=== PATIENT | female | born 1985 | race Hispanic/Latino ===

== ENCOUNTER 2019-08-09 05:18 | Day surgery (SDC) | payer OTHER ==
[2019-08-05 11:39] LABS: BASOPHILS % (AUTO) 0.7 % (0.0-5.0); EOSINOPHILS % (AUTO) 1.9 % (0.0-8.0); HEMATOCRIT 37.8 % (36-48); LYMPHOCYTES % (AUTO) 21.1 % (21.0-51.0); MEAN CORPUSCULAR HEMOGLOBIN 26.9 pg (27.0-33.0); MEAN CORPUSCULAR HGB CONC 33.1 g/dL (32.0-36.0); MEAN CORPUSCULAR VOLUME 81.5 fL (79-99); MONOCYTES % (AUTO) 6.4 % (3.0-13.0); NEUTROPHILS % (AUTO) 69.5 % (40.0-77.0); PLATELET COUNT (AUTO) 224 K/uL (130-400); RED BLOOD CELL COUNT(AUTO) 4.64 MIL/uL (4.00-5.50); RED CELL DISTRIBUTION WIDTH 14.6 % (11.0-15.5); WHITE BLOOD COUNT (AUTO) 7.2 K/uL (4.8-10.8)
[2019-08-08 10:01] VITALS: BP 125/79
[2019-08-09] VITALS (12 sets, daily range): BP systolic 110–127; BP diastolic 52–76
[~2019-08-09] VITALS: Ht 160 cm; Wt 93.9 kg
[~2019-08-09 05:18] MED LIST: CEFAZOLIN SODIUM 1 GM VIAL IVP SCH; prenatal PO
[2019-08-09] MEDS ORDERED: CEFAZOLIN SODIUM 1 GM VIAL ONE (06:12)
[2019-08-09] MEDS ORDERED: LACTATED RINGERS 1000ML 1,000 ML IV ONE (06:12)
[2019-08-09] MEDS ORDERED: CEFAZOLIN SODIUM 1 GM VIAL IVP ONE (07:45)
--- NOTE | 2019-08-09 11:25 | NUR ---
RE: ABDOMINAL CRAMPING PATIENT C/O CRAMPING TO ABDOMEN, RATES PAIN AT A 6 OUT OF [address] CALL[address] DR POWELL AND INFORMED HIM OF PATIENT'S SYMPTOMS AND ASKED IF I COULD GIVE HER IBUPROFEN. RECEIVED ORDERS TO STRAIGHT CATH PATIENT AND MAY GIVE IBUPROFEN 600MG.
--- NOTE | 2019-08-09 12:00 | NUR ---
PATIENT CONTINUES TO C/O NUMBNESS TO BLE'S. PATIENT WAS UNSTEADY WHEN SHE TRANSFERRED FROM WHEELCHAIR TO TOILET. WILL CONTINUE TO MONITOR PATIENT.
--- NOTE | 2019-08-09 12:00 | NUR ---
ATTEMPTED TO STRAIGHT CATH PATIENT BUT WAS UNSUCCESSFUL. SAT PATIENT UP TO SIT ON THE SIDE OF THE BED. PATIENT BEGAN TO URINATE IN BED. TOOK PATIENT TO BATHROOM VIA WHEELCHAIR. PATIENT'S UNDERWEAR/BLUE PAD WERE SATURATED WITH URINE. PATIENT ALSO URINATED IN TOILET. PATIENT VERBALIZED RELIEF OF CRAMPING. STATES THAT CRAMPING PAIN IS NO LONGER A 6 OUT OF 10, NOW RATES PAIN AT A 2 OUT OF 10. PATIENT DOES NOT WANT TO TAKE THE IBUPROFEN FOR CRAMPING.
--- NOTE | 2019-08-09 12:30 | NUR ---
PATIENT C/O PRESSURE TO ABDOMINAL AREA. PATIENT REQUESTING TO BE STRAIGHT CATHETERIZED. STRAIGHT CATH'D THE PATIENT USING STERILE TECHNIQUE, 1000CC CLEAR URINE DRAINED FROM CATHETER. CATHETER WAS THEN CLAMPED AND REMOVED. PATIENT VERBALIZED RELIEF AND NO LONGER IS C/O PRESSURE OR CRAMPING TO ABDOMEN.
--- NOTE | 2019-08-09 13:00 | NUR ---
PATIENT STATES THAT SHE IS STARING TO HAVE MORE SENSATION/FEELING IN HER LEGS AND BUTT. PATIENT ABLE TO FULLY BEND/FLEX HER LEGS. WILL CONTINUE TO MONITOR PATIENT FOR RECOVERY FROM HER SPINAL EPIDURAL.
--- NOTE | 2019-08-09 13:40 | NUR ---
PATIENT STATES THAT SHE FEELS RECOVERED FROM THE SPINAL EPIDURAL. PATIENT ABLE TO AMBULATE IN ROOM AND DRESS HERSELF. DISCHARGE INSTRUCTIONS PROVIDED TO PATIENT AND PATIENT'S MOTHER. ALL QUESTIONS/CONCERNS ADDRESSED.
--- NOTE | 2019-08-09 13:50 | NUR ---
PATIENT DISCHARGED FROM FACILITY VIA WHEELCHAIR BY ZEESHAN PIZANO MA. PATIENT ASSISTED INTO PRIVATE VEHICLE DRIVEN BY FAMILY MEMBER.
== END 2019-08-09 13:50 | disposition home or self-care (01) ==
LOC: DAH 05:18
PROVIDERS: ATTEND Obstetrics & Gynecology
DX: O34.31 Maternal care for cervical incompetence, first trimester (principal); Z3A.14 14 weeks gestation of pregnancy
CPT/HCPCS: 36415 ×2; 59320; 85025; 86850 ×2; 86900 ×2; 86901 ×2; A4213; A4215; A4221; A4222; A4223; A4663; A6260; J0690 ×2; J7030; J7120 ×2; U0003

== ENCOUNTER 2020-01-23 08:23 | Inpatient (IN) | payer OTHER, MEDICAID ==
[~2020-01-23] VITALS: Ht 160 cm; Wt 98.9 kg
[~2020-01-23 08:23] MED LIST changes: -CEFAZOLIN SODIUM 1 GM VIAL IVP SCH
[2020-01-23] MEDS ORDERED: OXYTOCIN-LR 20 UNITS/1000 ML 1,000 ML IV SCH (09:30)
[2020-01-23] MEDS ORDERED: LACTATED RINGERS 1000ML 1,000 ML IV PRN (09:30)
[2020-01-23 09:33] LABS: HEMATOCRIT 36.5 % (36-48); MEAN CORPUSCULAR HEMOGLOBIN 24.9 pg (27.0-33.0); MEAN CORPUSCULAR HGB CONC 32.3 g/dL (32.0-36.0); PLATELET COUNT (AUTO) 164 K/uL (130-400); RED BLOOD CELL COUNT(AUTO) 4.74 MIL/uL (4.00-5.50); RED CELL DISTRIBUTION WIDTH 15.9 % (11.0-15.5); WHITE BLOOD COUNT (AUTO) 8.4 K/uL (4.8-10.8)
[2020-01-23 09:33] LABS: APPEARANCE,URINE Turbid (CLEAR); BILIRUBIN,URINE Negative (NEGATIVE); COLOR,URINE Yellow (YELLOW); GLUCOSE, URINE (UA) Negative (NEGATIVE); KETONES,URINE 15 mg/dL (NEGATIVE); LEUKOCYTE ESTERASE ,URINE Small (NEGATIVE); NITRATE,URINE Negative (NEGATIVE); OCCULT BLOOD,URINE Small (NEGATIVE); PROTEIN,URINE Negative (NEGATIVE); UROBILINOGEN,URINE 0.2 mg/dL (0.2-1.0)
[2020-01-23] MEDS ORDERED: CALDOLOR 800MG+NS 250ML 250 ML IV PRN (09:45)
[2020-01-23] MEDS ORDERED: CEFAZOLIN SODIUM 1 GM VIAL IVP PRN (09:45)
[2020-01-23] MEDS ORDERED: METHYLERGONOVINE MALEATE 0.2 MG/1 ML ML ONE (09:47)
[2020-01-23] MEDS ORDERED: FENTANYL CITRATE PF 50 MCG/1 ML 2ML VIAL ONE (10:01)
[2020-01-23] MEDS ORDERED: DURAMORPH PF1 MG/ML 10ML AMP IV ONE (10:01)
[2020-01-23 10:03] LABS: BACTERIA,URINE Few /HPF (None Seen); RBC,URINE 0-1 /HPF (0-1)
[2020-01-23] MEDS ORDERED: CEFAZOLIN SODIUM 1 GM VIAL IVP ONE (10:06)
[2020-01-23] MEDS ORDERED: OXYTOCIN 10 USP UNITS/ML ONE (10:15)
[2020-01-23] MEDS ORDERED: ONDANSETRON HCL 4 MG/2 ML VIAL ONE (10:16)
[2020-01-23] MEDS ORDERED: PHENYLEPHRINE HCL 10 MG/ML 1ML VIAL IV ONE (10:24)
[2020-01-23] MEDS ORDERED: EPHEDRINE SULFATE 50 MG/ML AMPULE ONE (10:29)
[2020-01-23] MEDS ORDERED: DEXAMETHASONE SOD PHOSPHATE 10MG/ML 1ML VIAL ONE (10:34)
[2020-01-23 10:45] LABS: HEMATOCRIT 36.8 % (36-48); MEAN CORPUSCULAR HEMOGLOBIN 24.7 pg (27.0-33.0); MEAN CORPUSCULAR HGB CONC 31.8 g/dL (32.0-36.0); MEAN CORPUSCULAR VOLUME 77.6 fL (79-99); PLATELET COUNT (AUTO) 163 K/uL (130-400); RED BLOOD CELL COUNT(AUTO) 4.74 MIL/uL (4.00-5.50); RED CELL DISTRIBUTION WIDTH 15.9 % (11.0-15.5); WHITE BLOOD COUNT (AUTO) 8.3 K/uL (4.8-10.8)
[2020-01-23] MEDS ORDERED: PROMETHAZINE HCL 25 MG/ML 1ML AMPULE IM PRN (10:45)
[2020-01-23] MEDS ORDERED: MEPERIDINE-PF 75 MG/ML SYG IM PRN (10:45)
[2020-01-23] MEDS ORDERED: SODIUM CHLORIDE 0.9% 10 ML VIAL IVP PRN (10:45)
[2020-01-23] MEDS ORDERED: OXYTOCIN-LR 20 UNITS/1000 ML 1,000 ML IV PRN (10:45)
[2020-01-23 11:57] VITALS: BP 117/71
[2020-01-23 14:17] VITALS: BP 133/76
[2020-01-23 16:06] VITALS: BP 123/76
--- NOTE | 2020-01-23 16:15 | NUR ---
REPORT RECEIVED FROM MONTY MOLINA AND PATIENT CARE TRANSFERED AT THIS TIME.
[2020-01-23] MEDS ORDERED: ONDANSETRON HCL 4 MG/2 ML VIAL IVP PRN (17:00)
[2020-01-23] MEDS ORDERED: NALOXONE HCL 0.4 MG/1 ML ML IVP PRN ×3 (17:00)
[2020-01-23] MEDS ORDERED: DiphenhydrAMINE HCL 50 MG/ML VIAL IVP PRN (17:00)
[2020-01-23] MEDS ORDERED: EPHEDRINE SULFATE 50 MG/ML AMPULE IVP PRN (17:00)
--- NOTE | 2020-01-23 17:00 | NUR ---
C/O NAUSEA AND WAS MEDICATED WITH ZOFRAN 4MGS.
[2020-01-23] MEDS: DEXTROSE 5 %-0.45 % NACL 1,000 ML IV PRN (18:45)
--- NOTE | 2020-01-23 20:05 | NUR ---
ACTIVITY MINAL CARE GIVEN, ASSISTED TO SIDE OF BED TO DANGLE, TOLERATED WELL,, ABD BINDER PLACED Addendum: 01/24/20 at 0257 by TISHA UMAÑA LVN Amended: Links added.
[2020-01-24 00:20] VITALS: BP 111/76
[2020-01-24] MEDS: DEXTROSE 5 %-0.45 % NACL 1,000 ML IV PRN (01:29)
[2020-01-24 04:05] VITALS: BP 112/69
--- NOTE | 2020-01-24 05:30 | NUR ---
CASTELAN CATHETER F/C REMOVED, INTACT, TOLERATED WELL, INSTRUCTED TO CALL FOR ASSISTANCE WHEN SHE HAS URGE TO VOID, ACKNOWLEDGES UNDERSTANDING Addendum: 01/24/20 at 0626 by TISHA UMAÑA LVN Amended: Links added.
[2020-01-24 07:23] LABS: HEMATOCRIT 31.2 % (36-48); MEAN CORPUSCULAR HGB CONC 32.4 g/dL (32.0-36.0); MEAN CORPUSCULAR VOLUME 77.2 fL (79-99); RED BLOOD CELL COUNT(AUTO) 4.04 MIL/uL (4.00-5.50); RED CELL DISTRIBUTION WIDTH 15.9 % (11.0-15.5); WHITE BLOOD COUNT (AUTO) 11.2 K/uL (4.8-10.8)
[2020-01-24 07:30] VITALS: BP 115/74
[2020-01-24] MEDS ORDERED: LANOLIN 30GM OINTMENT TP PRN (08:00)
[2020-01-24] MEDS ORDERED: ACETAMINOPHEN-CODEINE 300/30MG TAB PO PRN (08:00)
[2020-01-24] MEDS ORDERED: SIMETHICONE 80 MG TAB.CHEW PO PRN (08:00)
[2020-01-24] MEDS ORDERED: BISACODYL 10 MG SUPP.RECT RC PRN (08:00)
[2020-01-24] MEDS ORDERED: HYDROCODONE/ACETAMINOPHEN 5/325 MG TAB PO PRN (08:00)
[2020-01-24] MEDS ORDERED: ACETAMINOPHEN EXTRA STRENGTH 500 MG TABLET PO PRN (08:00)
[2020-01-24] MEDS ORDERED: IBUPROFEN 600 MG TABLET PO PRN (08:00)
[2020-01-24] MEDS ORDERED: DOCUSATE SODIUM 100 MG CAP PO SCH (09:00)
--- NOTE | 2020-01-24 09:10 | NUR ---
ambulating in the hallway in steady gait, accompanied by spouse. Addendum: 01/24/20 at 1340 by JESSE SÁNCHEZ RN Amended: Links added.
[2020-01-24] MEDS ORDERED: IBUPROFEN 800 MG TAB PO SCH (10:45)
[2020-01-24 11:15] VITALS: BP 105/69
--- NOTE | 2020-01-24 12:20 | NUR ---
TRIGGER REC'D. HX ANXIETY MET WITH PT, [place] OF BABY , BABY IN COT. DAD OF BABY W EYES CLOSED, RESP REGULAR, PATIENT SUPPLIED ALL INFO PATIENT STATES SHE LIVES WIHT HER MOTHER/FATHER/ SISTER/ BORTHER//KIDS. STATES SHE HAS HER OWN ROOM, NOT BIG ENOUGH FOR A CRIB BUT BIG ENOUGH FOR A BASINETTE. STATES FATHER OF BABY WILL BE STAYING WITH HER FOR A MONTH. 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 SHE WAS PRESCRIBED 'SOME PILLS, BY A DR. PÉREZ, I THINK HE WAS A RESIDENT" AT [facility]. SHE ALSO WENT TO SOME COUNSELLING SESSION AT [facility], AND THERE LEARNED COPING SKILLS LIKE BREATHING EXERCISES. STATES SHE THREW THE PILLS AWAY WITHOUT FINISHING THE FIRST BOTTLE. SINCE THEM SHE BELIEVES SHE HAS GOOD COPING SKILLS AND WILL NOT HESISTATE TO ASK FOR HELP IF SHE FEELS OVERWHELMED. DENIES ANXIETY AT THIS TIME. Addendum: 01/24/20 at 1449 by REJI CARDONA RN CM Amended: Links added.
--- NOTE | 2020-01-24 12:20 | NUR ---
physician belen - Dr. Fuentes at bedside, informed pt that she is going home today. Addendum: 01/24/20 at 1224 by JESSE SÁNCHEZ RN Amended: Links added.
--- NOTE | 2020-01-24 13:10 | NUR ---
pt is discharged, verbal and written discharge instructions given, pls refer to exit care. informed to call the MD office on monday for follow up appointment. prescription given. informed to call the doctor for further concerns. pt voiced understanding to all things discussed. pt is waiting for her baby to be discharged. Addendum: 01/24/20 at 1338 by JESSE SÁNCHEZ RN Amended: Links added.
--- NOTE | 2020-01-24 14:00 | NUR ---
pt is dismissed with baby in stable condition, brought to private car via wheelchair. Addendum: 01/24/20 at 1409 by JESSE SÁNCHEZ RN Amended: Links added.
[2020-01-25 04:08] LABS: HEPATITIS Bs ANTIGEN SCREEN P Negative (Negative)
[2020-01-25 08:31] LABS: RAPID PLASMA REAGIN NONREACTIVE (NONREACTIVE)
== END 2020-01-24 14:00 | disposition home or self-care (01) | DRG 788 ==
LOC: EDH 08:23 → LDH 08:24 → OBSVTOIN 09:40 → WSH 14:15
PROVIDERS: ADMIT Obstetrics & Gynecology; ATTEND Obstetrics & Gynecology
PROC: 10D00Z1 Extraction of Products of Conception, Low, Open Approach (ICD-10-PCS; principal; 2020-01-23 10:00)
DX: O32.1XX0 Maternal care for breech presentation, not applicable or unspecified (principal); Z3A.38 38 weeks gestation of pregnancy; Z37.0 Single live birth; O99.62 Diseases of the digestive system complicating childbirth; K21.9 Gastro-esophageal reflux disease without esophagitis; O99.214 Obesity complicating childbirth; E66.9 Obesity, unspecified
CPT/HCPCS: 36415; 59510; 76815; 81001; 85027; 86592; 86701; 86850; 86900; 86901; 87340; 87390; A4344; G0378; J0690; J1100; J2210; J2274; J2370; J2405; J2590; J3010; J3490; J7120

== ENCOUNTER 2021-06-17 07:05 | Day surgery (SDC) | payer OTHER, MEDICAID ==
[2021-06-15 11:17] LABS: BASOPHILS % (AUTO) 0.8 % (0.0-5.0); HEMATOCRIT 42.4 % (36-48); LYMPHOCYTES % (AUTO) 24.1 % (21.0-51.0); MEAN CORPUSCULAR HEMOGLOBIN 26.3 pg (27.0-33.0); MEAN CORPUSCULAR HGB CONC 32.5 g/dL (32.0-36.0); MEAN CORPUSCULAR VOLUME 80.9 fL (79-99); MONOCYTES % (AUTO) 5.4 % (3.0-13.0); NEUTROPHILS % (AUTO) 65.9 % (40.0-77.0); PLATELET COUNT (AUTO) 209 K/uL (130-400); RED BLOOD CELL COUNT(AUTO) 5.24 MIL/uL (4.00-5.50); RED CELL DISTRIBUTION WIDTH 14.2 % (11.0-15.5); WHITE BLOOD COUNT (AUTO) 6.4 K/uL (4.8-10.8)
[2021-06-16 08:17] VITALS: BP 123/72
[~2021-06-17] VITALS: Ht 160 cm; Wt 91.6 kg
[2021-06-17] MEDS ORDERED: CEFAZOLIN SODIUM 1 GM VIAL ONE (07:23)
[2021-06-17] MEDS ORDERED: LACTATED RINGERS 1000ML 1,000 ML IV ONE (07:23)
[2021-06-17] MEDS ORDERED: PHENYLEPHRINE HCL 10 MG/ML 1ML VIAL IV ONE (07:31)
[2021-06-17] MEDS ORDERED: 0.9%NACL 10ML VIAL ONE (07:31)
[2021-06-17 07:32] VITALS: BP 148/71
[2021-06-17] MEDS ORDERED: ONDANSETRON 4MG INJ ONE (07:51)
[2021-06-17] MEDS ORDERED: CEFAZOLIN SODIUM 2 GM VIAL IV ONE (07:56)
[2021-06-17] MEDS ORDERED: NALOXONE HCL 0.4 MG/1 ML ML IVP PRN ×3 (09:00→09:30)
[2021-06-17] MEDS ORDERED: EPHEDRINE SULFATE 50 MG/ML AMPULE IVP PRN (09:30)
[2021-06-17] MEDS ORDERED: ONDANSETRON 4MG INJ IVP PRN (09:30)
[2021-06-17] MEDS ORDERED: DiphenhydrAMINE HCL 50 MG/ML VIAL IVP PRN (09:30)
== END 2021-06-17 14:25 | disposition home or self-care (01) ==
LOC: DAH 07:05
PROVIDERS: ATTEND Obstetrics & Gynecology
DX: O34.32 Maternal care for cervical incompetence, second trimester (principal); O99.212 Obesity complicating pregnancy, second trimester; O09.521 Supervision of elderly multigravida, first trimester; Z98.891 History of uterine scar from previous surgery; Z87.891 Personal history of nicotine dependence; Z79.899 Other long term (current) drug therapy; Z3A.14 14 weeks gestation of pregnancy
CPT/HCPCS: 36415; 59320; 85025; 86850; 86900; 86901; 87635; A4215; A4221; A4222; A4223; A4663; C9803; J0690 ×2; J2370; J2405; J7120 ×2

== ENCOUNTER 2021-09-16 18:08 | Observation (INO) | payer OTHER, MEDICAID ==
[~2021-09-16] VITALS: Ht 160 cm; Wt 94.3 kg
[2021-09-16 18:11] VITALS: BP 122/76
[2021-09-16 18:49] LABS: APPEARANCE,URINE CLOUDY (CLEAR); BILIRUBIN,URINE MODERATE (NEGATIVE); COLOR,URINE YELLOW (YELLOW); GLUCOSE, URINE (UA) NEGATIVE (NEGATIVE); KETONES,URINE >=80 mg/dL (NEGATIVE); LEUKOCYTE ESTERASE ,URINE NEGATIVE (NEGATIVE); NITRATE,URINE NEGATIVE (NEGATIVE); OCCULT BLOOD,URINE NEGATIVE (NEGATIVE); PROTEIN,URINE TRACE mg/dL (NEGATIVE); UROBILINOGEN,URINE 0.2 mg/dL (0.2-1.0)
[2021-09-16] MEDS ORDERED: LACTATED RINGERS 1000ML IV PRN (19:00)
[2021-09-16 19:02] LABS: BACTERIA,URINE Moderate /HPF (None Seen); SQUAMOUS EPITHELIAL CELL,UR 30-50 /HPF (0-2)
[2021-09-16 19:04] LABS: RBC,URINE 0-1 /HPF (0-1); WBC,URINE 0-1 /HPF (0-1)
[2021-09-16 19:05] LABS: MUCUS,URINE Moderate LPF (None Seen)
[2021-09-16 19:52] LABS: BASOPHILS % (AUTO) 0.3 % (0.0-5.0); EOSINOPHILS % (AUTO) 0.3 % (0.0-8.0); HEMATOCRIT 35.5 % (36-48); LYMPHOCYTES % (AUTO) 7.9 % (21.0-51.0); MEAN CORPUSCULAR HEMOGLOBIN 26.4 pg (27.0-33.0); MEAN CORPUSCULAR HGB CONC 33.5 g/dL (32.0-36.0); MEAN CORPUSCULAR VOLUME 78.9 fL (79-99); MONOCYTES % (AUTO) 4.5 % (3.0-13.0); NEUTROPHILS % (AUTO) 85.9 % (40.0-77.0); PLATELET COUNT (AUTO) 202 K/uL (130-400); RED CELL DISTRIBUTION WIDTH 14.4 % (11.0-15.5); WHITE BLOOD COUNT (AUTO) 7.4 K/uL (4.8-10.8)
[2021-09-16 20:14] LABS: ALBUMIN 2.4 g/dL (3.5-5.0); CREATININE 0.5 mg/dL (0.5-1.5); POTASSIUM 3.4 mmol/L (3.5-5.1); TOTAL PROTEIN, SERUM 6.5 g/dL (6.0-8.3)
[2021-09-16] MEDS ORDERED: ONDANSETRON 4MG INJ ONE (20:27)
[2021-09-16] MEDS ORDERED: ONDANSETRON 4MG INJ IVP ONE (20:30)
== END 2021-09-16 21:08 | disposition home or self-care (01) ==
LOC: EDH 18:08 → LDH 18:09
PROVIDERS: ADMIT Obstetrics & Gynecology; ATTEND Obstetrics & Gynecology
DX: O21.2 Late vomiting of pregnancy (principal); Z20.822 Contact with and (suspected) exposure to COVID-19; O26.892 Other specified pregnancy related conditions, second trimester; R19.7 Diarrhea, unspecified; O22.42 Hemorrhoids in pregnancy, second trimester; Z3A.26 26 weeks gestation of pregnancy
CPT/HCPCS: 96360; 80053; 85025; 87088; 87426; 81001; 36415; G0378 ×3; G0379; J7120; J2405

== ENCOUNTER 2021-11-23 15:58 | Inpatient (IN) | payer OTHER, MEDICAID ==
[~2021-11-23] VITALS: Ht 160 cm; Wt 98.9 kg
[2021-11-23 16:31] LABS: APPEARANCE,URINE CLEAR (CLEAR); BILIRUBIN,URINE NEGATIVE (NEGATIVE); COLOR,URINE YELLOW (YELLOW); GLUCOSE, URINE (UA) NEGATIVE (NEGATIVE); KETONES,URINE 100 mg/dL (NEGATIVE); LEUKOCYTE ESTERASE ,URINE NEGATIVE Leu/uL (NEGATIVE); NITRATE,URINE NEGATIVE (NEGATIVE); OCCULT BLOOD,URINE NEGATIVE (NEGATIVE); PROTEIN,URINE 20 mg/dL (NEGATIVE)
[2021-11-23] MEDS: LACTATED RINGERS 1000ML IV SCH (16:35)
[2021-11-23 16:40] LABS: BACTERIA,URINE RARE /HPF (None Seen); MUCUS,URINE RARE LPF (None Seen); SQUAMOUS EPITHELIAL CELL,UR FEW /HPF (0-2); WBC,URINE 0-1 /HPF (0-1)
[2021-11-23] MEDS ORDERED: TERBUTALINE SULFATE VIAL 1MG/ML SQ PRN (17:10)
[2021-11-23] MEDS ORDERED: TERBUTALINE SULFATE VIAL 1MG/ML SQ ONE (17:13)
[2021-11-23] MEDS: LACTATED RINGERS 1000ML 1,000 ML IV SCH (17:53)
[2021-11-23] MEDS: CITRIC ACID/SODIUM CITRATE 30 ML UDCUP PO SCH (18:41)
[2021-11-23] MEDS ORDERED: MAGNESIUM 4GM PREMIX 100ML 100 ML IV ONE (21:46)
[2021-11-23] MEDS ORDERED: MAGNESIUM SULFATE 40GM/1000ML 1,000 ML IV ONE (21:46)
[2021-11-23] MEDS ORDERED: MAGNESIUM 4GM PREMIX 100ML 100 ML IV SCH (22:00)
[2021-11-23] MEDS ORDERED: CALCIUM GLUC 1GM/10ML VIAL IV PRN (22:00)
[2021-11-23] MEDS ORDERED: MAGNESIUM SULFATE 40GM/1000ML 1,000 ML IV PRN (22:00)
[2021-11-23 23:18] LABS: HEMATOCRIT 31.8 % (36-48); MEAN CORPUSCULAR HEMOGLOBIN 23.8 pg (27.0-33.0); MEAN CORPUSCULAR HGB CONC 32.1 g/dL (32.0-36.0); MEAN CORPUSCULAR VOLUME 74.3 fL (79-99); PLATELET COUNT (AUTO) 178 K/uL (130-400); RED BLOOD CELL COUNT(AUTO) 4.28 MIL/uL (4.00-5.50); RED CELL DISTRIBUTION WIDTH 15.8 % (11.0-15.5); WHITE BLOOD COUNT (AUTO) 9.6 K/uL (4.8-10.8)
[2021-11-24] MEDS: LACTATED RINGERS 1000ML IV SCH (05:30)
[2021-11-24] MEDS ORDERED: CALDOLOR 800MG+NS 250ML 250 ML IV PRN (06:30)
[2021-11-24] MEDS ORDERED: FAMOTIDINE 20MG VIAL IV PRN (06:30)
[2021-11-24] MEDS ORDERED: CEFAZOLIN SODIUM 1 GM VIAL IVP PRN (06:30)
[2021-11-24] MEDS ORDERED: MORPHINE PF 100MG/10ML AMP IV ONE (06:55)
[2021-11-24] MEDS ORDERED: CEFAZOLIN SODIUM 2 GM VIAL IV ONE (07:02)
[2021-11-24] MEDS ORDERED: EPHEDRINE SULFATE 50 MG/ML AMPULE ONE (07:08)
[2021-11-24] MEDS ORDERED: ONDANSETRON 4MG INJ ONE (07:29)
[2021-11-24] MEDS ORDERED: NALOXONE HCL 0.4 MG/1 ML ML IVP PRN (08:30)
[2021-11-24] MEDS ORDERED: EPHEDRINE SULFATE 50 MG/ML AMPULE IVP PRN (08:30)
[2021-11-24] MEDS ORDERED: DiphenhydrAMINE HCL 50 MG/ML VIAL IVP PRN (08:30)
[2021-11-24] MEDS ORDERED: OXYTOCIN-LR 20 UNITS/1000 ML 1,000 ML IV PRN (10:30)
[2021-11-24] MEDS ORDERED: PROMETHAZINE HCL 25 MG/ML 1ML AMPULE IM PRN (10:30)
[2021-11-24] MEDS ORDERED: MEPERIDINE-PF 75 MG/ML SYG IM PRN (10:30)
[2021-11-24 10:34] VITALS: BP 117/72
[2021-11-24] MEDS: ONDANSETRON 4MG INJ IVP PRN ×2 (11:33→13:38)
[2021-11-24 11:54] VITALS: BP 118/76
[2021-11-24 14:14] LABS: RAPID PLASMA REAGIN NONREACTIVE (NONREACTIVE)
[2021-11-24] MEDS: DEXTROSE 5 %-0.45 % NACL 1,000 ML IV PRN ×2 (15:22→22:14)
[2021-11-24 16:40] VITALS: BP 101/63
[2021-11-24] MEDS ORDERED: PREN-226 PO (17:29)
[2021-11-24] MEDS: LACTATED RINGERS 1000ML 1,000 ML IV SCH (17:30)
[2021-11-24] MEDS: CITRIC ACID/SODIUM CITRATE 30 ML UDCUP PO SCH ×3 (18:30→18:39)
[2021-11-24 19:45] VITALS: BP 122/80
[2021-11-24 23:43] VITALS: BP 112/68
[2021-11-25 04:00] VITALS: BP 105/71
[2021-11-25] MEDS ORDERED: ACETAMINOPHEN 500 MG TABLET PO PRN (05:30)
[2021-11-25] MEDS ORDERED: BISACODYL 10 MG SUPP.RECT RC PRN (05:30)
[2021-11-25] MEDS ORDERED: ACETAMINOPHEN WITH CODEINE 1 TAB TAB PO PRN (05:30)
[2021-11-25] MEDS ORDERED: LANOLIN 30GM OINTMENT TP PRN (05:30)
[2021-11-25] MEDS ORDERED: HYDROCODONE/ACETAMINOPHEN 5/325 MG TAB PO PRN (05:30)
[2021-11-25 07:00] LABS: HEMATOCRIT 32.2 % (36-48); MEAN CORPUSCULAR HEMOGLOBIN 24.2 pg (27.0-33.0); MEAN CORPUSCULAR VOLUME 75.6 fL (79-99); RED BLOOD CELL COUNT(AUTO) 4.26 MIL/uL (4.00-5.50); WHITE BLOOD COUNT (AUTO) 7.2 K/uL (4.8-10.8)
[2021-11-25 07:17] VITALS: BP 102/64
[2021-11-25] MEDS: IBUPROFEN 600 MG TABLET PO PRN ×2 (08:21→20:04)
[2021-11-25] MEDS: DOCUSATE SODIUM 100 MG CAP PO SCH ×2 (08:21→21:11)
[2021-11-25] MEDS: SIMETHICONE 80 MG TAB.CHEW PO PRN ×2 (08:21→21:11)
[2021-11-25 11:06] VITALS: BP 95/53
[2021-11-25 17:02] VITALS: BP 121/72
[2021-11-25 19:12] VITALS: BP 104/68
[2021-11-25 22:49] VITALS: BP 101/55
[2021-11-26 03:03] VITALS: BP 103/59
[2021-11-26 07:57] VITALS: BP 123/74
[2021-11-26] MEDS: DOCUSATE SODIUM 100 MG CAP PO SCH (08:41)
[2021-11-26] MEDS: SIMETHICONE 80 MG TAB.CHEW PO PRN ×3 (08:41→17:25)
[2021-11-26] MEDS: IBUPROFEN 600 MG TABLET PO PRN ×2 (08:42→14:29)
[2021-11-26 11:47] VITALS: BP 104/54
[2021-11-26] MEDS ORDERED: ACET-2079 PO (13:50)
[2021-11-26 16:14] VITALS: BP 105/66
== END 2021-11-26 17:40 | disposition home or self-care (01) | DRG 786 ==
LOC: EDH 15:58 → OBSVTOIN 15:59 → LDH 15:59 → WSH 11-24 10:30
PROVIDERS: ADMIT Obstetrics & Gynecology; ATTEND Obstetrics & Gynecology
PROC: 10D00Z1 Extraction of Products of Conception, Low, Open Approach (ICD-10-PCS; principal; 2021-11-24 06:50)
DX: O34.211 Maternal care for low transverse scar from previous cesarean delivery (principal); O60.14X0 Preterm labor third trimester with preterm delivery third trimester, not applicable or unspecified; Z3A.36 36 weeks gestation of pregnancy; Z37.0 Single live birth
CPT/HCPCS: 36415; 81001; 85027; 86592; 86701; 86850; 86900; 86901; 87340; 87390; 96360; 96361; 96372; A4314; G0378; J0690; J1200; J1741; J2274; J2405; J3105; J3475; J3490; J7120

== ENCOUNTER → 2022-11-04 | Outpatient (CLI) | payer OTHER, MEDICAID ==
[~2022-11-04] MED LIST changes: +ACET-2079 PO; +PREN-226 PO; -prenatal PO
[2022-11-04 08:40] LABS: BASOPHILS # (AUTO) 0.07 K/uL (0.00-0.20); BASOPHILS % (AUTO) 1.5 % (0.0-5.0); EOSINOPHILS # (AUTO) 0.25 K/uL (0.00-0.70); EOSINOPHILS % (AUTO) 5.3 % (0.0-8.0); HEMATOCRIT 44.9 % (36-48); IMMATURE GRANULOCYTE ABSOLUTE 0.01 K/uL (0-1); LYMPHOCYTES # (AUTO) 1.4 K/uL (1.0-4.8); LYMPHOCYTES % (AUTO) 29.7 % (21.0-51.0); MEAN CORPUSCULAR HEMOGLOBIN 26.5 pg (27.0-33.0); MEAN CORPUSCULAR HGB CONC 32.1 g/dL (32.0-36.0); MEAN CORPUSCULAR VOLUME 82.7 fL (79-99); MONOCYTES # (AUTO) 0.3 K/uL (0.1-1.0); MONOCYTES % (AUTO) 7.1 % (3.0-13.0); NEUTROPHILS # (AUTO) 2.6 K/uL (1.8-7.7); NEUTROPHILS % (AUTO) 56.2 % (40.0-77.0); PLATELET COUNT (AUTO) 235 K/uL (130-400); RED BLOOD CELL COUNT(AUTO) 5.43 MIL/uL (4.00-5.50); WHITE BLOOD COUNT (AUTO) 4.7 K/uL (4.8-10.8)
[2022-11-04 08:43] LABS: APPEARANCE,URINE CLEAR (CLEAR); BILIRUBIN,URINE NEGATIVE (NEGATIVE); COLOR,URINE LIGHT-YELLOW (YELLOW); GLUCOSE, URINE (UA) NEGATIVE (NEGATIVE); KETONES,URINE NEGATIVE (NEGATIVE); LEUKOCYTE ESTERASE ,URINE 500 Leu/uL (NEGATIVE); NITRATE,URINE NEGATIVE (NEGATIVE); OCCULT BLOOD,URINE NEGATIVE (NEGATIVE); PROTEIN,URINE NEGATIVE (NEGATIVE); UROBILINOGEN,URINE 0.2 mg/dL (0.2-1.0)
[2022-11-04 08:44] LABS: ADD UA MICROSCOPIC YES
[2022-11-04 08:45] LABS: MUCUS,URINE RARE LPF (None Seen); NON-SQUAMOUS EPITHELIAL CELL 3 /HPF (0-2); SQUAMOUS EPITHELIAL CELL,UR FEW /HPF (0-2)
[2022-11-04 08:49] LABS: HEMOGLOBIN A1C 5.8 % (4.0-6.0)
[2022-11-04 09:02] LABS: ALBUMIN 3.8 g/dL (3.5-5.0); BILIRUBIN,TOTAL 0.3 mg/dL (0.2-1.0); CREATININE 0.8 mg/dL (0.5-1.5); POTASSIUM 4.2 mmol/L (3.5-5.1); THYROID STIMULATING HORMONE 2.58 uIU/mL (0.36-3.74); TOTAL PROTEIN, SERUM 7.9 g/dL (6.0-8.3)
[2022-11-04 09:44] LABS: ERYTHROCYTE SEDIMENTATION RATE 9 MM/HR (0-20)
== END | disposition home or self-care (01) ==
LOC: LAB 07:43
PROVIDERS: ATTEND Nurse Practitioner Family
DX: Z13.220 Encounter for screening for lipoid disorders (principal); Z13.29 Encounter for screening for other suspected endocrine disorder; Z13.21 Encounter for screening for nutritional disorder; R73.09 Other abnormal glucose; E04.9 Nontoxic goiter, unspecified
CPT/HCPCS: 36415; 80053; 80061; 81001; 82306; 83036; 83525; 84439; 84443; 84481; 85025; 85651; 87088

== ENCOUNTER → 2022-11-08 | Outpatient (CLI) | payer OTHER, MEDICAID | END | disposition home or self-care (01) | LOC: RAH 09:15 | PROVIDERS: ATTEND Nurse Practitioner Family | DX: S83.242A Other tear of medial meniscus, current injury, left knee, initial encounter (principal); S83.282A Other tear of lateral meniscus, current injury, left knee, initial encounter; M25.862 Other specified joint disorders, left knee; M25.562 Pain in left knee; X58.XXXA Exposure to other specified factors, initial encounter; Y93.89 Activity, other specified; Y92.89 Other specified places as the place of occurrence of the external cause; Y99.8 Other external cause status | CPT/HCPCS: 73721 ==